=== PATIENT | male | born 1995 | race Two or more races ===

== ENCOUNTER 2025-03-29 20:00 | Emergency (ER) | payer BC, SELFPAY ==
[2025-03-29 20:03] VITALS: BP 134/98
[2025-03-29 20:32] LABS: Hemoglobin 14.2 g/dL (13.0-18.0); Mean Corp Hgb Conc. 33.8 g/dL (33.0-37.0); Mean Corpuscular Hgb 28.2 pg (27.0-31.0); Mean Corpuscular Volume 83.5 fL (80.0-94.0); Mean Platelet Volume 9.1 fL (7.4-10.4); Platelet Count 295 10^3/uL (130-400); Red Blood Cell Count 5.03 10^6/uL (4.70-6.10); Red Cell Dist. Width 14.2 % (11.5-14.5); White Blood Cell Count 9.4 10^3/uL (4.8-10.8)
[2025-03-29 20:52] LABS: ALT (SGPT) 139 U/L (0-50); AST (SGOT) 50 U/L (17-59); Albumin 4.5 g/dl (3.5-5.0); Alkaline Phosphatase 122 U/L (38-126); Blood Urea Nitrogen 13 mg/dl (9-20); Calcium 9.2 mg/dl (8.4-10.2); Carbon Dioxide 25 mmol/L (22-30); Chloride 103 mmol/L (98-107); Glucose 208 mg/dl (70-99); Potassium 4.7 mmol/L (3.5-5.1); Sodium 137 mmol/L (135-145); Total Bilirubin 0.6 mg/dl (0.2-1.3); Total Protein 8.4 g/dl (6.3-8.2); eGFR > 60.00
[2025-03-29 20:58] LABS: Absolute Neutrophils -Man Diff 2.9 10^3/uL (1.4-6.5); Atypical Lymphocytes 20 %; Band Neutrophils 0 % (0-3); Eosinophils 3 % (0-6); Lymphocytes 27 % (20-51); Monocytes 18 % (2-9); Myelocytes 1 % (-); Segmented Neutrophils 31 % (42-75)
[2025-03-29 20:59] LABS: Platelets Checked Yes
[2025-03-29 21:01] LABS: Normal RBC Morphology Yes; Total Cells Counted 100
[2025-03-29 22:39] VITALS: BP 145/91
[2025-03-29 23:09] VITALS: BP 137/96; BMI 32.9
--- NOTE | 2025-03-29 23:34 | ED.GENMED ---
History of Present Illness
General
Chief Complaint: Cold/Flu/URI Symptoms
Source: patient and previous radiology exam (Outpatient CAT scan report from the [facility])
Exam Limitations: none
Time Seen by Provider: 03/29/25 23:17
Nursing documentation reviewed up to this point in time: agreed with
History of Present Illness
History of Present Illness:
29-year-old male diabetic few days of headache sinus congestion fever sore throat seen at [facility] had a CAT scan of his sinuses strep cultures discharged with supportive care, no longer having fever but still feeling congestion with headache,
reminds him when he had sinusitis before did see an ENT several years ago told he had polyps and recommended surgery which she declined has not been on antibiotics has not been on steroids
Past History
Past History
ED Past Medical History: NIDDM and Other (Diabetic sinusitis)
Social History
Tobacco: Non-smoker
Alcohol: None
Drug: None
Living: with family
Employment: Employed
Review of Systems
Review of Systems
All Other Systems: Not applicable
Constitutional: Reports fever
EENT: Reports other (Sinus congestion)
Respiratory: Denies trouble breathing
ABD/GI: Reports no symptoms
: Reports no symptoms
Skin: Reports no symptoms
Neurological: Reports dizzy and headache
Hematologic/Lymphatic: Reports no symptoms
Psychiatric: Reports no symptoms
Phy Exam
Physical Exam
Physical Exam:
Physical Exam
General: 29-year-old male nontoxic but looks uncomfortable
Neck: Posterior pharynx no trismus TMs fluid-filled bilaterally stuffy voice
Heart: s1/s2 regular rate and rhythm, no murmur. equal radial pulses.
Lungs: no acute respiratory distress. clear bilaterally
Abdomen: Nontender
Neuro: alert and oriented. no focal neurological deficits
Skin: no rash
Psychiatric: well kept. interactive and cooperative
Extremities: no edema.
Course
Orders/Labs/Results
Orders:
Orders
03/29/25 20:15
CMP [Comprehensive Metabolic Panel] Urgent
Complete Blood Count/With Diff Urgent
Manual Differential Urgent
03/29/25 23:30
0.9% Sodium Chloride 1000 ml [Nss] 1,000 ml IV BOLUS
Acetaminophen [Tylenol] 1,000 mg PO NOW STA
Dexamethasone Sod Phosphate [Decadron] 10 mg IV NOW STA
Ketorolac [Toradol] 30 mg IV NOW STA
03/29/25 23:38
Ampicillin/Sulbactam 3 G [Unasyn] 3 gm 0.9% Sodium Chloride 100 ml [Nss] 100 ml IV NOW
Abnormal Lab Results
03/29/25
20:15
Segmented Neutrophils 31 L %
(42-75)
Monocytes (Manual) 18 H %
(2-9)
Glucose 208 H mg/dl
(70-99)
ALT 139 H U/L
(0-50)
Total Protein 8.4 H g/dl
(6.3-8.2)
03/29/25 20:15
03/29/25 20:15
Vital Signs
Initial and Last Documented VS:
Initial Vital Signs
Temp Pulse Resp BP Pulse Ox
98.7 F 118 18 134/98 97
03/29/25 20:03 03/29/25 20:03 03/29/25 20:03 03/29/25 20:03 03/29/25 20:03
Last Documented Vital Signs
Temp Pulse Resp BP Pulse Ox
99.2 F 93 20 145/92 97
03/30/25 00:49 03/30/25 00:31 03/30/25 00:31 03/30/25 00:31 03/30/25 00:31
MDM/Problems Addressed
Differential Diagnosis Includes:
Sinusitis viral syndrome strep
MDM/Problems Addressed:
Sinus congestion stuffy nose headache
Chronic conditions affecting care:
Diabetes sinus polyp
Acute Exacerbation and/or Progression of Chronic Illness:
Diabetes sinus polyp
*Radiology
Radiology exam reviewed: other (Outpatient CT report noted)
*Pulse Oximetry
Patient hypoxic: no
*Critical Care Note
Total Time (30-74mins, 75-104mins- exclusive of procedures): Not Applicable
Update Note
Update Note:
Update clinically and radiographically patient is sinusitis he is diabetic did have high fever could all be viral versus viral with mixed bacterial urine fungal, will start on antibiotics steroids, try to get him feeling better, did talk to him
about seeing an ENT there are some treatments now for polyps that were not available until recently, beyond surgery
1:15 AM patient feeling better follows blood sugars at home this will be on a steroid follow-up PCP and ENT
ED Attending Note
-
Portions of this chart may have been created with voice recognition software.� Occasional wrong word or��sound alike� substitutions may have occurred due to the inherent limitations of voice recognition software.
Discharge Plan
Departure
Patient Disposition: Home (Routine Discharge)
Date of Disposition: 03/30/25
Time of Disposition: 01:12
Patient with high blood pressure during this ER visit?: No
Condition: Good
Discharge Problem:
Acute sinusitis
Instructions: Nasal polyps, Sinusitis in adults - ED discharge instructions
Prescriptions:
New
amoxicillin-pot clavulanate 875-125 mg tablet
1 tab PO BID Qty: 20 0RF
methylprednisolone [Medrol (Shai)] 4 mg tablets,dose pack
See Rx Instructions .ROUTE .COMPLEX Qty: 21 0RF
Rx Instructions:
for 6 days
No Action
metformin 500 mg Tablet
500 mg PO BID
insulin lispro [Humalog Pen] 100 unit/mL Insulin Pen
12 unit SC TID
Lantus U-100 Insulin 100 unit/mL Cartridge
28 unit SC HS
duloxetine 30 mg Capsule, Delayed Rel Sprinkle
30 mg PO DAILY
Fioricet
1 tab PO Q4H PRN (Reason: headache)
Zofran ODT
4 mg PO Q8H PRN (Reason: headache)
Referrals:
Drew Berg MD [Family Provider] - Follow up in 2-3 days
Horace Manley MD [Active, Otology] - Next open appointment
Activity Restrictions/Additional Instructions:
Drink plenty of fluids, steroids and antibiotics as prescribed Tylenol as needed for headache
Interventions
Interventions:
*General Assessment Last Done: 03/29/25 23:09
*Neglect/Abuse Screening Last Done: 03/29/25 23:09
*ED- Fall Risk Assessment Last Done: 03/29/25 23:09
*ED COVID-19 Vaccine History Last Done: 03/29/25 23:09
ED- Pulmonary Assessment Last Done: 03/29/25 23:09
Discharge Date and Time
Print Language: LATVIAN
[2025-03-29] MEDS: DECADRON 10 MG IV (23:45)
[2025-03-29] MEDS: NSS 1000 IV (23:45)
[2025-03-29] MEDS: TYLENOL 1000 MG PO (23:46)
[2025-03-29] MEDS: TORADOL 30 MG IV (23:46)
[2025-03-30] MEDS: UNASYN IV (00:08)
[2025-03-30 00:31] VITALS: BP 145/92
[2025-03-30 01:16] VITALS: BP 127/91
[2025-03-30 01:36] VITALS: BP 127/91
== END 2025-03-30 01:38 | disposition home or self-care (01) ==
LOC: EMR 20:00
PROVIDERS: Emergency Medicine; EMERGENCY PHYSICIAN Emergency Medicine; FAMILY PHYSICIAN Internal Medicine
DX: J01.90 Acute sinusitis, unspecified (principal); R42 Dizziness and giddiness; R51.9 Headache, unspecified; E11.9 Type 2 diabetes mellitus without complications
CPT/HCPCS: 99284; 96365; 96361 ×2; 80053; 85025